=== PATIENT | male | born 1990 | race Caucasian/White ===

== ENCOUNTER 2016-11-05 15:53 | Emergency (ER) | payer MEDICARE ==
--- NOTE | 2016-11-05 16:13 | ERPHSYRPT ---
- History of Present Illness Time Seen by Provider: 11/05/16 16:10 Source: family Exam Limitations: other (autism) Physician History: The patient is an autistic nonverbal 26-year-old male with his parents who fell out of the chair onto his right hand yesterday. The mom states the patient is favoring his right hand today. His right hand is also mildly swollen. He uses either hand equally. Occurred: yesterday Reason for Fall: lost balance Injuries/Pain Location: upper extremity (right hand) Loss of Consciousness: no loss of consciousness Quality: aching Severity of Pain-Max: mild Severity of Pain-Current: mild Modifying Factors: Improves With: nothing Associated Symptoms (Fall): denies symptoms Home Medications: Carbamazepine [Tegretol] 400 mg PO TID 11/05/16 [History] Cetirizine HCl [Zyrtec] 10 mg PO DAILY 11/05/16 [History] Clonazepam 1 mg PO UD 11/05/16 [History] Fluticasone Propionate [Flonase Nasal] 16 gm NS DAILY 11/05/16 [History] Ibuprofen 400 mg PO DAILY PRN 11/05/16 [History] Propranolol HCl 20 mg [Inderal 20 MG] 20 mg PO DAILY 11/05/16 [History] - Review of Systems Constitutional: No Fever, No Chills Eyes: No Symptoms Ears, Nose, & Throat: No Symptoms Respiratory: No Cough, No Dyspnea Cardiac: No Chest Pain, No Edema, No Syncope Abdominal/Gastrointestinal: No Abdominal Pain, No Nausea, No Vomiting, No Diarrhea Genitourinary Symptoms: No Dysuria Musculoskeletal: Fall, Injury Skin: No Rash Neurological: No Dizziness, No Focal Weakness, No Sensory Changes Psychological: No Symptoms Endocrine: No Symptoms Hematologic/Lymphatic: No Symptoms Immunological/Allergic: No Symptoms All Other Systems: Reviewed and Negative - Nursing Vital Signs Nursing Vital Signs: Initial Vital Signs Temperature 98.7 F 11/05/16 15:54 Pulse Rate 91 H 11/05/16 15:54 Respiratory Rate 20 11/05/16 15:54 Blood Pressure 131/78 11/05/16 15:54 O2 Sat by Pulse Oximetry 95 11/05/16 15:54 - Ranjan Coma Score Best Eye Response (Ranjan): (4) open spontaneously Best Verbal Response (Ranjan): (5) oriented Best Motor Response ([place]): (6) obeys commands Ranjan Total: 15 - Physical Exam General Appearance: no apparent distress, alert Head Injury: no evidence of injury Eye Exam: PERRL/EOMI ENT Exam: airway nml Neck Exam: normal inspection, No tenderness Respiratory/Chest Exam: normal breath sounds, No chest tenderness, No respiratory distress Cardiovascular Exam: normal heart sounds, regular rate/rhythm Gastrointestinal Exam: soft, No tenderness, No distention, No guarding, No ecchymosis Rectal Exam: not done Back Exam: normal inspection, No vertebral tenderness Extremity Exam: swelling (right hand) Neurologic Exam: alert, oriented x 3, cooperative, sensation nml, No motor deficits Skin Exam: normal color, warm, dry SpO2 Interpretation: normal - Radiology Exams Right Hand X-ray Interpretation: Interpreted by me, Negative Ordered Tests: Active Orders 24 hr Category Date Time Status HAND (MINIMUM 3 VIEWS) Stat Exams 11/05/16 16:13 Taken - Progress Progress: unchanged Counseled pt/family regarding: rad results - Departure Time of Disposition: 17:15 Departure Disposition: Home Clinical Impression: Contusion of right hand Condition: Stable Critical Care Time: No Additional Instructions: You have a contusion of the right hand. X-ray of the right hand was negative. Take Tylenol and ibuprofen as needed. Follow-up as needed.
[2016-11-05 16:19] VITALS: BP 131/78; PULSE 91; O2SAT 95
--- NOTE | 2016-11-06 13:14 | XRAY ---
Indication: Pain and swelling. Comparison: None 3 views of the right hand obtained. No bony, articular, or soft tissue abnormalities.
== END 2016-11-05 17:22 | disposition home or self-care (01) ==
LOC: ED 15:53
DX: S60.221A Contusion of right hand, initial encounter (principal); W07.XXXA Fall from chair, initial encounter; F84.0 Autistic disorder; R47.89 Other speech disturbances
CPT/HCPCS: 73130; 99283